=== PATIENT | female | born 1950 | race Caucasian/White ===

== ENCOUNTER 2016-09-14 09:32 | Outpatient (CLI) | payer MEDICARE, OTHER ==
--- NOTE | 2016-09-14 17:36 | MRI Report ---
MRI BRAIN WITHOUT CONTRAST INDICATION: 66-year-old female with asymmetric hearing loss. Please assess. TECHNIQUE: Brain: 1. T1 sagittal. 2. Axial T1 3-D, FLAIR and DWI. Internal auditory canals: 1. Thin slice, fat-saturated T2 coronal. 2. Thin slice, balanced FFE axial. COMPARISON: None. FINDINGS: Internal Auditory Canals: The vestibular cochlear nerve bundles are well seen in the CP angle cisterns on the balanced FFE axia l sequence. No focal mass lesion is demonstrated. There are normal fluid-filled spaces in the distrib ution of the cochlea, vestibules and semicircular canals bilaterally. There is no dehiscence of eithe r superior semicircular canal. No abnormal enlargement of either endolymphatic duct or sac is demonst rated. Brain: There is mild generalized prominence of the cerebral cortical sulci and third and lateral ventricles, considered within normal limits for stated age. No hydrocephalus. Signal intensity of cortex and whi te matter appears normal throughout. No abnormal diffusion restriction is demonstrated. No abnormal extra-axial fluid collection. No mass effect or midline shift. There is asymmetric prominence of the pituitary gland on the left. On the left the pituitary measures about 6.3 mm in maximal height, compared to about 2.5 mm on the right. Very limited assessment of the orbits reveals no gross pathology. The paranasal sinuses are essential ly clear. No significant mastoid or middle ear effusion is demonstrated. IMPRESSION: 1. Normal unenhanced MRI examination of internal auditory canals. In particular, no evidence of vesti bular schwannoma. 2. Asymmetry in the size of the pituitary gland which is significantly larger on the left than the ri ght. The possibility of a left-sided microadenoma cannot be excluded. This could be further evaluated with dedicated, contrast enhanced pituitary protocol MRI as clinically warranted. 3. No other significance intracranial findings on limited, unenhanced imaging of the brain. Referring Provider Line: [phone] SITE ID: [id number]
== END 2016-09-14 09:33 | disposition home or self-care (01) ==
LOC: DI 09:32
PROVIDERS: ATTEND Specialist
DX: H91.8X3 Other specified hearing loss, bilateral (principal)
CPT/HCPCS: 70551

== ENCOUNTER 2022-09-18 09:11 | Outpatient (CLI) | payer MEDICARE ==
--- NOTE | 2022-09-18 09:39 | XRAY Report ---
PROCEDURE: Chest 2 View X-Ray INDICATIONS: CHOUGH TECHNIQUE: 2 views of the chest were acquired. COMPARISON: None. FINDINGS: Surgical changes and devices: None. Lungs and pleura: There is a large left pleural effusion with associated atelectasis and contralater al mediastinal shift. Right lung is grossly clear. Mediastinum: Mediastinal contours appear normal. Heart size is normal. Bones and chest wall: No suspicious bony lesions. Overlying soft tissues appear unremarkable. IMPRESSION: Large left pleural effusion with associated atelectasis and contralateral mediastinal shift. The cont ralateral shift is consistent with either a malignant pleural effusion or empyema. Comment: Recommend CT chest with contrast. Reviewed by: Jose Harper MD on 09/18/2022 9:38 AM PDT Approved by: Jose Harper MD on 09/18/2022 9:38 AM PDT Station ID: [id number]
== END 2022-09-18 09:12 | disposition home or self-care (01) ==
LOC: DI 09:11
PROVIDERS: ATTEND Internal Medicine
DX: R05.3 Chronic cough (principal); J90 Pleural effusion, not elsewhere classified; J98.11 Atelectasis

== ENCOUNTER 2022-09-25 08:36 | Outpatient (CLI) | payer MEDICARE ==
[2022-09-25 09:03] LABS: CREATININE 0.9 mg/dL (0.6-1.3)
[2022-09-25] MEDS ORDERED: iohexoL-300 100 ML VIAL ONE (09:18)
[2022-09-25] MEDS ORDERED: iohexoL-300 100 ML VIAL IVP ONE (11:26)
--- NOTE | 2022-09-25 14:56 | CT Report ---
PROCEDURE: CHEST W INDICATIONS: PLEURAL EFFUSION CONTRAST: 100ml Omni 300 TECHNIQUE: After the administration of intravenous contrast, 1 mm axial images were acquired from the pulmonary apices through the posterior costophrenic angles. Axial 5 mm soft tissue kernel reconstructions were performed as well as 8 mm axial MIP and coronal and sagittal 5 mm reformations. For radiation dose reduction, the following was used: automated exposure control, adjustment of mA and/or kV according to patient size. COMPARISON: None. FINDINGS: Image quality: Excellent. Lungs and pleura: Large left pleural effusion, with near complete atelectasis of the left lower lobe and moderate atelectasis of the left upper lobe. There is patchy consolidation within both lungs, mos tly peripheral. Airways are patent. No right-sided effusion. No pleural mass identified. Mediastinum: Heart size is normal. No pericardial effusion. No large vessel abnormality. No mediastin al adenopathy by size criteria. Small hiatal hernia. Chest wall and lower neck: No thyroid nodule which requires sonographic follow up. No axillary or sup raclavicular adenopathy by size. Bones: Ill-defined sclerosis within the spine, most prominent at T5 and T8. Upper Abdomen: Nodular thickening of the left adrenal gland, without a measurable nodule. IMPRESSION: Large left pleural effusion, with associated atelectasis of the left lung. Patchy, mild consolidative nodules within the lungs, right greater than left. Superimposed atypical i nfection not excluded. Recommend follow-up CT in 2-3 months to ensure resolution. Ill-defined sclerosis of the spine, concerning for osseous metastatic disease. Correlate with history . Reviewed by: Liborio Valverde on 09/25/2022 2:54 PM PDT Approved by: Liborio Valverde on 09/25/2022 2:54 PM PDT Station ID: [id number]
== END 2022-09-25 08:37 | disposition home or self-care (01) ==
LOC: LAB 08:36
PROVIDERS: ATTEND Internal Medicine
DX: J90 Pleural effusion, not elsewhere classified (principal); R60.9 Edema, unspecified; Z79.899 Other long term (current) drug therapy; J98.11 Atelectasis; R91.8 Other nonspecific abnormal finding of lung field; G95.89 Other specified diseases of spinal cord
CPT/HCPCS: 36415; 71260; 82565; Q9967

== ENCOUNTER 2022-10-04 09:09 | Outpatient (CLI) | payer MEDICARE | END 2022-10-04 09:10 | disposition home or self-care (01) | LOC: DI 09:09 | PROVIDERS: ATTEND Internal Medicine | DX: J90 Pleural effusion, not elsewhere classified (principal); R60.9 Edema, unspecified | CPT/HCPCS: 93306 ==

== ENCOUNTER 2022-11-08 09:41 | Outpatient (CLI) | payer MEDICARE ==
--- NOTE | 2022-11-08 16:26 | XRAY Report ---
PROCEDURE: Chest 2 View X-Ray INDICATIONS: EDEMA, PLEURAL EFFUSION TECHNIQUE: 2 views of the chest were acquired. COMPARISON: Chest radiograph 10/13/2022 FINDINGS: Surgical changes and devices: Left chest wall metal clips. Lungs and pleura: Large left pleural effusion, increased compared to the prior exam. Nonspecific haz y opacities right mid and lower lung, also increased. Small right pleural effusion. Mediastinum: Cardiac silhouette is partially obscured, not well evaluated. Left to right mediastinal shift. Bones and chest wall: No suspicious bony lesions. Overlying soft tissues appear unremarkable. IMPRESSION: 1. Large left pleural effusion, increased compared to the prior exam, with near total opacification o f the left hemithorax. 2. Increase in nonspecific right mid and lower lung opacities. A small right pleural effusion is also present. Reviewed by: Luigi Thibodeaux MD on 11/08/2022 4:24 PM PDT Approved by: Luigi Thibodeaux MD on 11/08/2022 4:24 PM PDT Station ID: [id number]
== END 2022-11-08 09:42 | disposition home or self-care (01) ==
LOC: DI 09:41
PROVIDERS: ATTEND Internal Medicine
DX: R05.3 Chronic cough (principal); R06.02 Shortness of breath; J90 Pleural effusion, not elsewhere classified; R91.8 Other nonspecific abnormal finding of lung field

== ENCOUNTER 2022-11-09 09:44 | Outpatient (CLI) | payer MEDICARE ==
[~2022-11-09 09:44] MED LIST: LIDOCAINE-MPF 1% 5 ML VIAL ONE
--- NOTE | 2022-11-09 10:54 | XRAY Report ---
PROCEDURE: Post Thoracentesis 1V CXR INDICATIONS: POST THORACENTESIS TECHNIQUE: One view of the chest was acquired. COMPARISON: 11/08/2022 FINDINGS: Surgical changes and devices: None. Lungs and pleura: Moderate left pleural effusion. Moderate left mid and lower lung airspace opacity. Mediastinum: Mediastinal contours appear normal. Heart size is normal. Bones and chest wall: No suspicious bony lesions. Overlying soft tissues appear unremarkable. IMPRESSION: 1. No complication following thoracentesis. 2. Left lung pleural parenchymal density. Follow-up PA and lateral chest x-rays or chest CT is recomm ended to ensure resolution, and to exclude underlying neoplasm. Reviewed by: Troy Garcia MD on 11/09/2022 10:53 AM PDT Approved by: Troy Garcia MD on 11/09/2022 10:53 AM PDT Station ID: [id number]
[2022-11-09 11:19] LABS: CC,BF WBC 1029 /mm^3
[2022-11-09 11:20] LABS: BF CLARITY CLEAR; BF COLOR YELLOW; BF SOURCE PLEURAL; CC,BF RBC < 3000 /mm^3; EOSINOPHILS %,BODY FLUID 1 %; LYMPHOCYTES %,BODY FLUID 88 %; MONOCYTES %,BODY FLUID 8 %; NEUTROPHILS %, BF 3 %
[2022-11-09 11:27] LABS: ALBUMIN 4.4 g/dL (3.2-5.5); TOTAL PROTEIN 7.5 g/dL (6.4-8.9)
[2022-11-09] MEDS ORDERED: LIDOCAINE-MPF 1% 5 ML VIAL TD ONE (11:45)
--- NOTE | 2022-11-09 15:53 | Ultrasound Report ---
PROCEDURE: Thoracentesis Puncture INDICATIONS: EDEMA, PLEURAL EFFUSION TECHNIQUE: The indications, alternatives, benefits, risks, and complications of the procedure were explained to the patient. Written informed consent was obtained and placed in the chart. The chest was examined sonographically, and an appropriate site was chosen for thoracentesis. The skin was prepared and justin ped in the usual sterile fashion, and 1% lidocaine was infiltrated from the skin down through the ple ural surface. A 19-gauge catheter-covered needle was then introduced into the pleural space, the cat heter was advanced and the needle was withdrawn, and thereafter pleural fluid was aspirated. The cat heter was then removed and a dressing was applied. COMPARISON: None. FINDINGS: Access site: Left hemithorax. Needle: One-Step centesis catheter with introducer needle. Fluid volume and description: 1060 cc of clear yellow fluid Fluid sent for diagnostic testing: Yes Medications: 1% lidocaine for local anaesthesia. Complications: None; post-procedural chest radiograph is pending to assess for pneumothorax. IMPRESSION: Successful ultrasound-guided diagnostic and therapeutic thoracentesis. Reviewed by: Troy Garcia MD on 11/09/2022 3:52 PM PDT Approved by: Troy Garcia MD on 11/09/2022 3:52 PM PDT Station ID: [id number]
[2022-11-10 04:09] LABS: PROTEIN BODY FLUID 4.5 g/dL (.)
[2022-11-10 05:13] LABS: pH BODY FLUID 7.4 (Not Estab.)
== END 2022-11-09 09:45 | disposition home or self-care (01) ==
LOC: DI 09:44
PROVIDERS: ATTEND Internal Medicine
DX: R60.9 Edema, unspecified (principal); J90 Pleural effusion, not elsewhere classified; R91.8 Other nonspecific abnormal finding of lung field
CPT/HCPCS: 32555; 36415; 81599; 82040; 82945; 83615; 83986; 84155; 84157; 87070; 87205; 89051

== ENCOUNTER 2022-11-15 11:18 | Emergency (ER) | payer MEDICARE ==
--- OUTSIDE RECORDS SUMMARY | 2022-11-15 12:15 | EXTERNAL MEDICAL SUMMARY RPT | Continuity of Care Document ---
Author Name Unknown Address [address] [place] [address] Phone Organization [facility] Address [address] [place] [address] Phone Care Team Providers Care Network Development Coordinator Name Role Phone Unavailable Unavailable Unavailable Richard, Provider Unavailable Unavailable Medications date description facility 2022-09-25 00:00 [facility]ine [facility] 2022-11-09 00:00 [facility] 2022-11-10 00:00 [facility] 2022-11-11 00:00 [facility] [place] 2022-11-12 00:00 [facility] 2022-11-13 00:00 [facility] 2022-09-25 00:00 [facility] 2022-11-09 00:00 [facility] 2022-11-10 00:00 [facility] 2022-11-11 00:00 [facility] 2022-11-12 00:00 [facility] 2022-11-13 00:00 [facility] 2022-09-25 00:00 [facility] 2022-11-09 00:00 [facility] 2022-11-10 00:00 [facility] 2022-11-11 00:00 [facility] 2022-11-12 00:00 [facility] 2022-11-13 00:00 [facility] 2022-09-25 00:00 [facility]orvastatin [facility] 2022-11-09 00:00 [facility]orvastatin [facility] 2022-11-10 00:00 [facility]vastatin [facility] 2022-11-11 00:00 [facility]orvastatin [facility] 2022-11-12 00:00 [facility]orvastatin [facility] 2022-11-13 00:00 [facility]orvastatin [facility] 2022-09-25 00:00 [facility]orvastatin [facility] 2022-11-09 00:00 [facility]orvastatin [facility] 2022-11-10 00:00 [facility]orvastatin [facility] 2022-11-11 00:00 [facility]orvastatin [facility] 2022-11-12 00:00 [facility]orvastatin [facility] 2022-11-13 00:00 [facility]orvastatin [facility] 2022-09-25 00:00 [facility]vastatin [facility] 2022-11-09 00:00 [facility]orvastatin [facility] 2022-11-10 00:00 [facility]orvastatin [facility] 2022-11-11 00:00 [facility]orvastatin [facility] 2022-11-12 00:00 [facility]orvastatin [facility] 2022-11-13 00:00 [facility]orvastatin [facility] 2022-09-25 00:00 [facility]orvastatin [facility] 2022-11-09 00:00 [facility]orvastatin [facility] 2022-11-10 00:00 atorvastatin [facility] 2022-11-11 00:00 [facility]orvastatin [facility] 2022-11-12 00:00 [facility]orvastatin [facility] 2022-11-13 00:00 [facility]orvastatin [facility] 2022-09-25 00:00 [facility]othyroxine [facility] 2022-11-09 00:00 [facility]ine [facility] 2022-11-10 00:00 [facility]ine [facility] 2022-11-11 00:00 [facility]ine [facility] 2022-11-12 00:00 [facility]ine [facility] 2022-11-13 00:00 [facility]ine [facility] Results/Labs test date facility value unit notes
--- NOTE | 2022-11-15 12:52 | XRAY Report ---
PROCEDURE: Chest 1 View X-Ray INDICATIONS: chest pain TECHNIQUE: One view of the chest was acquired. COMPARISON: Chest x-ray 11/09/2022. FINDINGS: Surgical changes and devices: None. Lungs and pleura: Large left pleural effusion is increased in size compared to prior. There is adjac ent opacity versus atelectasis. Small right pleural effusion. Right mid and lower lung airspace opaci ties. Mediastinum: Mediastinal contours appear normal. Heart size is normal. Bones and chest wall: No suspicious bony lesions. Overlying soft tissues appear unremarkable. IMPRESSION: Large left pleural effusion is increased compared to prior. Small right pleural effusion with right m id and lower lung zone airspace opacities, representing atelectasis or infection. Reviewed by: Kwasi Velasquez MD on 11/15/2022 12:50 PM PDT Approved by: Kwasi Velasquez MD on 11/15/2022 12:50 PM PDT Station ID: [id number]
--- NOTE | 2022-11-15 13:04 | ED Physician Documentation ---
History of Present Illness - Stated complaint Stated Complaint: SOA,COUGHING - Chief complaint Chief Complaint: Resp - History obtained from History obtained from: Patient - Additonal information Additional information: The patient comes to the emergency department chief complaint of cough and shortness of breath over the last approximately month and a half. She states she is in the midst of a work-up with her PCP and still does not know why she has pleural effusions, but that she was found to have a left-sided pleural effusion. She has had 2 thoracenteses under imaging guidance, including just 5 days ago. The patient states that the removal fluid really has not seem to have affected her symptoms and she was hoping to get tapped again today. The patient states that she did not feel any different after her last tap 5 days ago. She has an appointment coming up with her doctor to determine further care and to discuss her fluid results. The patient denies any other complaints at this t jeanie. No fever or chills. She has been having to sit up in a chair at night because of her shortness of breath. No other complaints at this time. PD PAST MEDICAL HISTORY - Past Medical History Past Medical History: Yes Cardiovascular: Hypertension, High cholesterol Respiratory: None Endocrine/Autoimmune: None, HyPOthyroidism GI: Colon polyps : None HEENT: None Psych: Claustrophobia Musculoskeletal: None Derm: None - Past Surgical History General: Colonoscopy /INSTALLATION HELPER: Mastectomy, Breast implants - Present Medications Home Medications: Ambulatory Orders Medication Instructions Recorded Confirmed Amitriptyline [Elavil] 10 mg PO QPM 12/18/13 12/19/13 Levothyroxine [Synthroid] 75 mcg PO QDAC 12/18/13 12/19/13 SUMAtriptan succinate [Sumatriptan 100 mg PO DAILY PRN 12/18/13 12/19/13 Succinate] lisinopriL [Lisinopril] 2.5 mg PO DAILY 12/18/13 12/19/13 - Allergies Allergies/Adverse Reactions: Allergies Allergy/AdvReac Type Severity Reaction Status Date / Time Sulfa (Sulfonamide AdvReac Rash Verified 11/15/22 11:33 Antibiotics) - Social History Does the pt smoke?: No Smoking Status: Never smoker PD ED PE NORMAL - Vitals Vital signs reviewed: Yes - General General: Alert and oriented X 3, No acute distress, Well developed/nourished - HEENT HEENT: Atraumatic, PERRL, EOMI, Moist mucous membranes - Neck Neck: Supple, no meningeal sign - Cardiac Cardiac: RRR, No murmur - Respiratory Respiratory: No respiratory distress, Other (Decreased breath sounds left side) - Abdomen Abdomen: Soft, Non tender, Non distended - Derm Derm: Warm and dry - Extremities Extremities: No deformity, No edema - Neuro Neuro: Alert and oriented X 3 - Psych Psych: Normal mood, Normal affect Results - Vitals Vitals: Oxygen O2 Source Room air - Rads (name of study) Chest x-ray Relevant Findings:: Final report received, See rad report (Large left pleural effusion with some increase compared to prior.) PD Medical Decision Making - ED course Complexity details: reviewed results, re-evaluated patient, considered differential, d/w patient ED course: The patient was very well-appearing and breathing comfortably in the emergency department. She did have some increase in her pleural effusions since last time, but her oxygen saturation was good and there is no evidence of any Significant clinical worsening. Additionally, the patient stated she did not really feel any different today than she had at any point in the last several weeks or than she felt after her last thoracentesis 5 days ago. At this point in time, I discussed with the patient that she does not present emergent indication for thoracentesis at this time and that she would be best off having to her doctor schedule another imaging guided thoracentesis. Most importantly, however, it is vital that her medical team get to the bottom of why she keeps forming these pleural effusions, as malignancy certainly is a concern. The patient has had a CT of the chest which has not showed a specific cause and at this point in time, no further emergent imaging is likely to be helpful. The patient is stable for discharge home. We have discussed home management of the symptoms as well as the usual indications for return. Departure - Departure Disposition: 01 Home, Self Care Clinical Impression: Pleural effusion Condition: Stable Instructions: ED Effusion Pleural Comments: You do still have a significant amount of fluid in your chest cavity, which does not appear significantly changed since the thoracentesis you had last week. Your oxygen levels look very good here and , at this point at this point in time, emergent, nonimaging guided thoracentesis is not emergently indicated. Please talk to Dr. Hebert's office about getting scheduled for another imaging guided thoracentesis and also, discussed with her whether you can have a standing order for thoracentesis, since you seem to be rapidly reaccumulating fluid. It is important that you work closely with your doctors office to determine the cause of this fluid buildup so that the underlying issue can be addressed. Forms: PCP List Discharge Date/Time: 11/15/22 13:23
[2022-11-15 13:33] VITALS: BP 171/99; O2SAT 96
== END 2022-11-15 13:23 | disposition home or self-care (01) ==
LOC: ED 11:18
DX: J90 Pleural effusion, not elsewhere classified (principal); I10 Essential (primary) hypertension
CPT/HCPCS: 99283

== ENCOUNTER 2022-12-07 09:13 | Emergency (ER) | payer MEDICARE ==
--- OUTSIDE RECORDS SUMMARY | 2022-12-07 09:47 | EXTERNAL MEDICAL SUMMARY RPT | Continuity of Care Document ---
Author Name Unknown Address [address] [place] [address] Phone Organization [facility] Address [address] [place] [address] Phone Care Team Providers Care Seamer Panty Hose Name Role Phone Unavailable Unavailable Unavailable Ankur, Roxy Unavailable Unavailable Richard, Provider Unavailable Unavailable Allergies and Intolerances date description facility reaction severity 2022-12-01 10:13:40 [facility] (no reactio n) (no severity) Medications date description facility 2022-09-25 00:00 levothyroxine [...] [facility] 2022-11-10 00:00 [facility]ine [facility] [place] 2022-11-11 00:00 [facility]ine [facility] 2022-11-12 00:00 [facility] 2022-11-13 00:00 [facility]ine [facility] [place] 2022-12-01 00:00 [facility] 2022-09-25 00:00 atorvastatin [facility] [place] 2022-11-09 00:00 atorvastatin [facility] 2022-11-10 00:00 atorvastatin [facility] 2022-11-11 00:00 atorvastatin [facility] 2022-11-12 00:00 atorvastatin [facility] [place] 2022-11-13 00:00 atorvastatin [facility] 2022-09-25 00:00 [facility]orvastatin [facility] [place] 2022-11-09 00:00 atorvastatin [facility] 2022-11-10 00:00 atorvastatin [facility] [place] 2022-11-11 00:00 [facility]atin [facility] [place] 2022-11-10 00:00 [facility]othyroxine [facility] [place] 2022-11-11 00:00 [facility]ine [facility] [place] 2022-11-12 00:00 [facility]ine [facility] [place] 2022-11-13 00:00 [facility]othyroxine [facility] [place] Problems date description facility 2022-12-01 00:00 Recurrent pleural effusion [facility] 2022-12-01 00:00 Shortness of breath [facility] Procedures date description facility 2022-12-01 00:00 Thoracentesis with ultrasound [facility] 2022-12-01 00[facility] Results/Labs test date facility value unit notes Social History date description facility 2022-12-01 00:00 Tobacco smoking consumption unk nown ([facility]) [facility] Vital Signs date measurement value units 2022-12-01 00:00 BMI 38.7 kg/m2 2022-12-01 00:00 BP_diastolic 95 mmHg 2022-12-01 00:00 BP_systolic 160 mmHg 2022-12-01 00:00 heart_rate 88 /min 2022-12-01 00:00 height_metric 162.56 cm 2022-12-01 00:00 height_standard 64 in 2022-12-01 00:00 o2_saturation 94 % 2022-12-01 00:00 respiration_rate 31 /min 2022-12-01 00:00 temperature_metric 36.78 C 2022-12-01 00:00 temperature_standard 98.2 F 2022-12-01 00:00 weight_metric 102.51 kg 2022-12-01 00:00 weight_standard 226 lb
--- NOTE | 2022-12-07 09:52 | XRAY Report ---
PROCEDURE: Chest 1 View X-Ray INDICATIONS: SOA TECHNIQUE: One view of the chest was acquired. COMPARISON: Chest x-ray 11/28/2022 FINDINGS: Surgical changes and devices: None. Lungs and pleura: Persistent appearance of bilateral effusions, left greater than right appearing si milar versus minimally more prominent on the left. Mediastinum: Mediastinal contours appear normal. Heart size is enlarged. Bones and chest wall: No suspicious bony lesions. Overlying soft tissues appear unremarkable. IMPRESSION: Persistent effusions compared to prior exam questionably minimally more prominent. Reviewed by: Elaina Marquez MD on 12/07/2022 9:51 AM PDT Approved by: Elaina Marquez MD on 12/07/2022 9:51 AM PDT Station ID: [id number]
[2022-12-07 10:55] LABS: BASOPHILS # (AUTO) 0.1 10^3/uL (0.0-0.1); BASOPHILS % (AUTO) 0.6 %; EOSINOPHILS # (AUTO) 0.1 10^3/uL (0.0-0.7); EOSINOPHILS % (AUTO) 1.4 %; HCT - HEMATOCRIT 42.2 % (37.0-47.0); LYMPHOCYTES # (AUTO) 1.1 10^3/uL (1.5-3.5); LYMPHOCYTES % (AUTO) 12.8 %; MEAN CORPUSCULAR HEMOGLOBIN 26.9 pg (27.0-31.0); MEAN CORPUSCULAR HGB CONC 30.8 g/dL (32.0-36.0); MEAN CORPUSCULAR VOLUME 87.2 fL (81.0-99.0); MEAN PLATELET VOLUME 10.4 fL (7.9-10.8); MONOCYTES # (AUTO) 0.8 10^3/uL (0.0-1.0); MONOCYTES % (AUTO) 9.3 %; NEUTROPHILS # (AUTO) 6.2 10^3/uL (1.5-6.6); NEUTROPHILS % (AUTO) 74.8 %; PLT - PLATELET COUNT 248 10^3/uL (130-450); RED BLOOD COUNT 4.84 10^6/uL (4.20-5.40); RED CELL DISTRIBUTION WIDTH 15.5 % (12.0-15.0); WHITE BLOOD COUNT 8.4 x10^3/uL (4.8-10.8)
[2022-12-07 10:56] LABS: INR 1.2 (0.8-1.2); PT - PROTHROMBIN TIME 13.6 secs (9.9-12.6)
[2022-12-07 11:04] LABS: ALBUMIN 3.9 g/dL (3.2-5.5); ALBUMIN/GLOBULIN RATIO 1.2 (1.0-2.2); BILIRUBIN,TOTAL 0.4 mg/dL (0.2-1.0); CALCIUM 10.9 mg/dL (8.5-10.3); CREATININE 0.7 mg/dL (0.6-1.3); POTASSIUM 4.6 mmol/L (3.5-4.5); TOTAL PROTEIN 7.1 g/dL (6.4-8.9)
--- NOTE | 2022-12-07 15:42 | ED Physician Documentation ---
PD HPI DYSPNEA - Stated complaint Stated Complaint: SOA - Chief complaint Chief Complaint: Resp - History obtained from History obtained from: Patient - Additional information Additional information: Patient is a 72-year-old female with a history of recurrent left sided pleural effusions, recently diagnosed with cancer, presenting for evaluation of worsening shortness of air. The patient had a thoracentesis last SundayDec 01 at [facility] and then prior to that a few days earlier on November 28. She states that after these procedures she usually only feels better for a day or so but then starts feeling progressively worsening shortness of air. She is on a diuretic for lower extremity swelling. Denies chest pain, fever. She was referred to Dr. Edward, oncology but has not yet been able to get an appointment. Her PCP is Dr. Hebert. Review of Systems Constitutional: denies: Fever Cardiac: denies: Chest pain / pressure Respiratory: reports: Dyspnea GI: denies: Abdominal Pain, Vomiting Musculoskeletal: reports: Extremity swelling PD PAST MEDICAL HISTORY - Past Medical History Cardiovascular: Hypertension, High cholesterol Respiratory: Other Endocrine/Autoimmune: None, HyPOthyroidism GI: Colon polyps : None HEENT: None Psych: Claustrophobia Musculoskeletal: None Derm: None Other Past Medical History: lung cancer w/mets - Past Surgical History Past Surgical History: Yes General: Colonoscopy /[employer]: Mastectomy, Breast implants - Present Medications Home Medications: Ambulatory Orders Medication Instructions Recorded Confirmed Amitriptyline [Elavil] 10 mg PO QPM 12/18/13 12/19/13 Levothyroxine [Synthroid] 75 mcg PO QDAC 12/18/13 12/19/13 SUMAtriptan succinate [Sumatriptan 100 mg PO DAILY PRN 12/18/13 12/19/13 Succinate] lisinopriL [Lisinopril] 2.5 mg PO DAILY 12/18/13 12/19/13 - Allergies Allergies/Adverse Reactions: Allergies Allergy/AdvReac Type Severity Reaction Status Date / Time Sulfa (Sulfonamide AdvReac Rash Verified 12/07/22 09:25 Antibiotics) - Social History Does the pt smoke?: No Smoking Status: Never smoker PD ED PE NORMAL - General General: Alert and oriented X 3, No acute distress, Well developed/nourished - HEENT HEENT: Atraumatic - Neck Neck: Supple, no meningeal sign - Cardiac Cardiac: RRR, No murmur - Respiratory Respiratory: Other (Mildly tachypneic, diminished breath sounds throughout left lung [place]) - Abdomen Abdomen: Soft, Non tender - Derm Derm: Warm and dry - Extremities Extremities: Other (Bilateral lower extremity edema) - Neuro Neuro: Alert and oriented X 3, Normal speech Results - Vitals Vitals: Vital Signs - 24 hr 12/07/22 12/07/22 12/07/22 09:19 11:24 13:00 Temperature 36.9 C Heart Rate 89 84 80 Respiratory 30 H 18 18 Rate Blood Pressure 180/114 H 153/112 H 163/96 H O2 Saturation 95 99 96 12/07/22 12/07/22 14:47 15:39 Temperature Heart Rate 91 85 Respiratory 19 18 Rate Blood Pressure 159/113 H 160/95 H O2 Saturation 97 98 Oxygen O2 Source Room air - Labs Labs: Laboratory Tests 12/07/22 12/07/22 12/07/22 10:41 10:41 10:41 WBC 8.4 RBC 4.84 Hgb 13.0 Hct 42.2 MCV 87.2 MCH 26.9 L MCHC 30.8 L RDW 15.5 H Plt Count 248 MPV 10.4 Neut # (Auto) 6.2 Lymph # (Auto) 1.1 L [place] # (Auto) 0.8 Eos # (Auto) 0.1 Baso # (Auto) 0.1 Absolute Nucleated RBC 0.00 Nucleated RBC % 0.0 PT 13.6 H INR 1.2 Sodium 137 Potassium 4.6 H Chloride 102 Carbon Dioxide 29 Anion Gap 6.0 BUN 18 Creatinine 0.7 Estimated GFR (MDRD) 82 L Glucose 111 H Calcium 10.9 H Total Bilirubin 0.4 AST 25 ALT 17 Alkaline Phosphatase 510 H B-Natriuretic Peptide Cancelled Total Protein 7.1 Albumin 3.9 Globulin 3.2 Albumin/Globulin Ratio 1.2 12/07/22 10:41 WBC RBC Hgb Hct MCV MCH MCHC RDW Plt Count MPV Neut # (Auto) Lymph # (Auto) [place] # (Auto) Eos # (Auto) Baso # (Auto) Absolute Nucleated RBC Nucleated RBC % PT INR Sodium Potassium Chloride Carbon Dioxide Anion Gap BUN Creatinine Estimated GFR (MDRD) Glucose Calcium Total Bilirubin AST ALT Alkaline Phosphatase B-Natriuretic Peptide 12 Total Protein Albumin Globulin Albumin/Globulin Ratio PD Medical Decision Making - ED course Complexity details: reviewed results, re-evaluated patient, d/w patient ED course: Patient is a 72-year-old female with recurrent left-sided pleural effusion with worsening shortness of air since last thoracentesis almost 1 week ago. She is mildly tachypneic but otherwise vital signs are stable. She has markedly diminished breath sounds in the left lung field. Chest x-ray shows again a left-sided pleural effusion. Patient was recently told that this is related to a malignancy and was referred to oncology but has not yet established care. CBC, chemistry, INR were obtained and reviewed. Ultrasound-guided thoracentesis was ordered and 1 L of fluid was drained by radiologist. Postprocedure x-ray showed no pneumothorax. Patient is feeling slightly better. She is counseled on need for close follow-up with her PCP as well as establishing care with oncology to determine a more long-term solution for these recurrent pleural effusions. She also requested information for hospice which was provided to her . Patient is counseled on Concerning symptoms to return for. Departure - Departure Disposition: 01 Home, Self Care Clinical Impression: Recurrent pleural effusion on left Condition: Stable Instructions: ED Effusion Pleural Follow-Up: Richa Hebert MD [Primary Care Provider] - Comments: You had a thoracentesis today to drain fluid from your left lung again. The fluid appears to be accumulating back quite quickly. I would recommend close follow-up with your primary care provider to discuss a more long-term solution as you are needing frequent drainage of this. 1 option is to keep a catheter in place such as a Pleurx catheter. I would recommend also follow-up with oncology, Dr. Osorio. We have also given you information per your request for hospice. Return to the emergency department with any worsening symptoms. Forms: PCP List Discharge Date/Time: 12/07/22 15:50
--- NOTE | 2022-12-07 15:43 | XRAY Report ---
PROCEDURE: Post Thoracentesis 1V CXR INDICATIONS: POST THORACENTESIS TECHNIQUE: One view of the chest was acquired. COMPARISON: Chest radiographs 12/07/2022 and 11/28/2022 FINDINGS: Surgical changes and devices: Surgical clips are seen projecting over the breasts bilaterally. Bilat eral breast implants are present. Lungs and pleura: Moderate left pleural effusion has mildly decreased in size when compared to the r adiographs from earlier the same day. Stable small right pleural effusion and collateral pulmonary op acities. No pneumothorax is seen. Mediastinum: Mediastinal contours appear normal. Heart size is normal. Bones and chest wall: No suspicious bony lesions. Overlying soft tissues appear unremarkable. IMPRESSION: Mildly decreased size of the moderate left pleural effusion when compared to the exam from earlier th e same day. No pneumothorax. Stable right-sided pleural effusion and bilateral pulmonary opacities. Reviewed by: Luigi Ornelas MD on 12/07/2022 3:42 PM PDT Approved by: Luigi Ornelas MD on 12/07/2022 3:42 PM PDT Station ID: [id number]
--- NOTE | 2022-12-07 15:44 | Ultrasound Report ---
PROCEDURE: Thoracentesis Puncture INDICATIONS: symptomatic L sided pleural effusion/recurrent TECHNIQUE: The indications, alternatives, benefits, risks, and complications of the procedure were explained to the patient. Written informed consent was obtained and placed in the chart. The chest was examined sonographically, and an appropriate site was chosen for thoracentesis. The skin was prepared and justin ped in the usual sterile fashion, and 1% lidocaine was infiltrated from the skin down through the ple ural surface. A 19-gauge catheter-covered needle was then introduced into the pleural space, the cat heter was advanced and the needle was withdrawn, and thereafter pleural fluid was aspirated. The cat heter was then removed and a dressing was applied. COMPARISON: Chest radiographs 12/07/2022, thoracentesis 11/28/2022 FINDINGS: Access site: Left hemithorax. Needle: One-Step centesis catheter with introducer needle. Fluid volume and description: 1 L clear yellow fluid Fluid sent for diagnostic testing: Not requested Medications: 1% lidocaine for local anaesthesia. Complications: None; post-procedural chest radiograph is pending to assess for pneumothorax. IMPRESSION: Successful ultrasound-guided thoracentesis. Reviewed by: Luigi Ornelas MD on 12/07/2022 3:43 PM PDT Approved by: Luigi Ornelas MD on 12/07/2022 3:43 PM PDT Station ID: [id number]
[2022-12-07 15:45] VITALS: BP 160/95; O2SAT 98
== END 2022-12-07 15:50 | disposition home or self-care (01) ==
LOC: ED 09:13
DX: J90 Pleural effusion, not elsewhere classified (principal); C34.90 Malignant neoplasm of unspecified part of unspecified bronchus or lung; I10 Essential (primary) hypertension
CPT/HCPCS: 32555; 36415; 80053; 83880; 85025; 85610; 99284

== ENCOUNTER 2022-12-23 12:51 | Outpatient (CLI) | payer MEDICARE | END 2022-12-23 12:52 | disposition EMS.NT | LOC: EMS 12:51 | DX: R06.03 Acute respiratory distress (principal) ==